=== PATIENT | female | born 1945 | race Caucasian/White ===

== ENCOUNTER → 2017-12-16 | Outpatient (CLI) | payer OTHER ==
[~2017-12-16] MED LIST: ACAI; ACET325 PO; ACET500 PO; ALBU.083IS IH; ALBU2.5V5 INH; ALBU3IS INH; ALBU4 INH; ALBU90OI INH; ALBUIS INH; ALUMAG30SU PO; ASPI325 PO; ASPI81CH; ASPI81CH PO; ASPI81EC; ASPI81EC PO; ATECHL; ATOR10 PO; ATOR20 PO; Accuneb0.63 MG/3 IH; BAYER CHEWABLE81 MG PO; BENEFIBER1 EAC1 PO; BENZ100A PO; Bactrim Ds Tab1 EACH PO; Benefiber98 GM PO; Bumetanide0.5 MG PO; CEPH500 PO; CHLORHEXIDINE FL1 ML PO; CILO50 PO; CIME400; CLON.1 PO; CLON.5 PO; CLON1; CLONAZEPAM; CODGUAEL PO; CVS DISPOSABLE399 ML PR; CYCL10 PO; DIAZ10; DIAZEPAM; DILT120 PO; DILT120ERA PO; DIPATR; DIPATR PO; DIVA125 PO; DIVA125EC PO; DIVA500EC; DIVA500EC PO; DIVA500ER PO; DOCU100 PO; DULO30; DULO30 PO; DULO60; DULO60 PO; ENDOCET PO; ERGCAF PO; ESTR1; ESTR1 PO; ESTR2 PO; FENT25TP TOP; FIBE4P PO; FISH1000 PO; FLUV80CR; FLUV80CR PO; FURO20 PO; FURO40; FURO40 PO; FURO80 PO; GABA300 PO; GEMF600 PO; GLIP2.5ER PO; GLIP5 PO; GLIP5ER PO; GLYCAS PR; GUAI600T33 PO; HYDACE10B; HYDACE10B PO; HYDACE5; HYDACE5 PO; HYDACE7.5; HYDR1TAB94 PO; Hair, Skin & N1 EACH PO; Hydrocodone-Ap1 EA23 PO; IBUP400 PO; IBUP600 PO; INS70/30PN SC; INSUASPI SC; INSULANPEN; INSULANPEN SC; IPRAIS NEB; ISOMON30 PO; ISOMON60ER; Ipratr-Albuterol3 ML INH; Isosorbide Dini30 MG PO; LASIX; LAVAP17G PO; LESCOL; LEVEMIR FL100 UNIT/1 SC; LEVFLO500 PO; LEVO750 PO; LISI10; LORA1 PO; LOSA25 PO; METF500 PO; METF500C PO; METO100 PO; METO100ER PO; METO2.5 PO; METO50 PO; MIRALAX119 GM PO; MULVITA PO; MULVITMIND PO; MULVITMINE PO; Macrobid 100 M100 MG PO; Milk Of Ma400 MG/5 M PO; Multivitamin1 EAC1 PO; NAPR220 PO; NAPR550 PO; NICO2 PO; NITR2TO30; Nicotine Gum2 MG BC; Novolog Fl100 UNIT/1 SC; Novolog100 UNIT/2; Novolog100 UNIT/2 SC; OLME20 PO; OLME5TAB; OLME5TAB PO; OMEP20ER; OMEP20ER PO; OMEPRAZOLE MAGN20 MG PO; OXYACE5T PO; OXYACE7.5T PO; Omeprazole20 M1 PO; PHENA100; PHENY100ER; POTASSIUM CHLORIDE; POTASSIUM CHLORIDE PO; POTCHL10ER PO; POTCHL20ER PO; PRAV20 PO; PRIM50 PO; PROM25 PO; QUET100 PO; QUET25 PO; RABE20; RANI150; RANI150 PO; ROBITUSSIN COU118 ML PO; ROBITUSSIN100 MG/5 M PO; RXCYCL10 PO; RXDIPATR PO; RXHYDACE PO; RXOXYACE PO; SULTRIDS PO; Senna8.6 M1 PO; Senna8.6 MG PO; Seroquel100 MG PO; Seroquel50 MG PO; TEMA15 PO; THIA100 PO; TIOT18 IH; TRAM50; TRAM50 PO; TRAMADOL; TRAZ100; TRAZ100 PO; TRAZ150; TRAZ150T57 PO; TRAZ50; TRAZ50 PO; TRAZODONE; VERA180ERA PO; VERA180ERB; VERA180ERB PO; VERA240ERB PO; Ventolin5 MG/1 ML INH; Vitamin D400 UNI1 PO; [UNRECOGNIZED DRUG - OTHER]; [UNRECOGNIZED DRUG - OTHER]; [UNRECOGNIZED DRUG - OTHER]
== END ==
LOC: LAB SHORT 16:03
DX: L08.9 Local infection of the skin and subcutaneous tissue, unspecified (principal); L02.223 Furuncle of chest wall; L02.02 Furuncle of face; L21.8 Other seborrheic dermatitis
CPT/HCPCS: 87070; 87077; 87186; 87205

== ENCOUNTER 2018-01-08 14:55 | Inpatient (IN) | payer OTHER ==
[~2018-01-08] VITALS: Ht 170.2 cm; Wt 102.0 kg
[~2018-01-08 14:55] MED LIST changes: -ALBU2.5V5 INH; -Bumetanide0.5 MG PO; -FURO80 PO; -INSULANPEN; -LEVEMIR FL100 UNIT/1 SC; -METO2.5 PO; -Macrobid 100 M100 MG PO; -Novolog Fl100 UNIT/1 SC; -Novolog100 UNIT/2; -POTASSIUM CHLORIDE PO; -TRAM50 PO; -Vitamin D400 UNI1 PO
[2018-01-08 15:16] LABS: PCO2 Arterial 55.4 mmHg (35-45); PO2 Arterial 68.9 mmHg (80-100); pH Blood Arterial 7.56 (7.35-7.45)
[2018-01-08 15:28] LABS: BASOPHILS ABSOLUTE AUTO 0.08 K/mm3 (0.00-0.23); BASOPHILS PERCENT AUTO 1 % (0-2); EOSINOPHILS ABSOLUTE AUTO 0.07 K/mm3 (0.00-0.68); EOSINOPHILS PERCENT AUTO 0 % (0-6); Hematocrit 54.4 % (33.0-51.0); Hemoglobin 17.6 g/dL (11.5-16.0); IMMATURE GRAN ABSOLUTE AUTO 0.12 K/mm3 (0.00-0.10); IMMATURE GRAN PERCENT AUTO 1 % (0-1); LYMPHOCYTES ABSOLUTE AUTO 4.03 K/mm3 (0.84-5.20); LYMPHOCYTES PERCENT AUTO 23 % (21-46); MONOCYTES ABSOLUTE AUTO 2.64 K/mm3 (0.16-1.47); MONOCYTES PERCENT AUTO 15 % (4-13); Mean Corpuscular HGB 30.6 pg (26.0-34.0); Mean Corpuscular HGB Conc 32.4 g/dL (31.5-36.5); Mean Corpuscular Volume 94 fL (80-100); Mean Platelet Volume 10.1 fL (9.1-12.4); NEUTROPHILS ABSOLUTE AUTO 10.46 K/mm3 (1.96-9.15); NEUTROPHILS PERCENT AUTO 60 % (41-73); NRBC ABSOLUTE 0.02 K/mm3 (0.00-0.02); NRBC Auto 0.1 /100 WBC (0.0-0.2); Platelet Count 268 K/mm3 (150-400); RDW Coefficient Variation 15.2 % (11.7-14.2); RDW Standard Deviation 51.9 fL (35.1-46.3); Red Blood Cell Count 5.76 M/mm3 (3.80-5.20)
[2018-01-08 15:41] LABS: Alanine Aminotransfer (ALT/SGP 20 U/L (12-78); Albumin, Blood 3.4 g/dL (3.4-5.0); Albumin/Globulin Ratio 0.7 (0.8-1.8); Alk Phos 63 U/L (50-136); Aspartate Aminotrans (AST/SGOT 31 U/L (12-37); Bilirubin, Total 0.4 mg/dL (0.1-1.0); Blood Urea Nitrogen 48 mg/dL (8-24); Bun/Creatinine Ratio 52.4 (12.0-20.0); Calcium, Blood 10.1 mg/dL (8.5-10.1); Chloride, Blood 85 mmol/L (98-108); Creatinine, Blood 0.92 mg/dL (0.40-1.00); Globulin, Blood 5.1 g/dL (2.2-4.0); Glomerular Filtration Rate >60 (60-); Glucose, Blood 218 mg/dL (70-99); Magnesium, Blood 2.7 mg/dL (1.6-2.4); Potassium, Blood 3.3 mmol/L (3.5-5.5); Sodium, Blood 140 mmol/L (136-145); Total Protein, Blood 8.5 g/dL (6.4-8.2)
[2018-01-08 16:00] LABS: Anion Gap 10 mmol/L (6-16); CO2, Blood 45 mmol/L (21-32)
[2018-01-08 16:15] LABS: Source, Urine Catheter
[2018-01-08 16:25] LABS: Appearance, Urine Clear (Clear); Bilirubin, Urine Neg (Neg); Blood, Urine 1+ (Neg); Color, Urine Yellow (P-Yellow); Glucose Qualitative, Urine Neg (Neg); Ketones, Urine Neg (Neg); Leukocyte Esterase, Urine 2+ (Neg); Nitrite, Urine Neg (Neg); Protein, Urine 1+ (Neg); Specific Gravity, Urine 1.015 (1.003-1.022); Urobilinogen, Urine 1+ (Normal)
[2018-01-08] MEDS ORDERED: INSULANPEN (16:25)
[2018-01-08] MEDS ORDERED: Novolog100 UNIT/2 (16:27)
[2018-01-08] MEDS ORDERED: METO2.5 PO (16:31)
[2018-01-08] MEDS ORDERED: Vitamin D400 UNI1 PO (16:32)
[2018-01-08 16:33] LABS: Red Blood Cells, Urine 0-2 /hpf (0-2); Squamous Epithelial Cells Rare /hpf (Few); White Blood Cells, Urine 25-50 /hpf (0-5); Yeast/Fungi Urine Few /hpf
[2018-01-08 16:34] LABS: Bacteria Few /hpf
[2018-01-08] MEDS ORDERED: TRAM50 PO (16:36)
[2018-01-08 17:04] LABS: Influenza A Negative (NEGATIVE); Influenza B Negative (NEGATIVE)
[2018-01-09 05:59] LABS: BASOPHILS ABSOLUTE AUTO 0.05 K/mm3 (0.00-0.23); BASOPHILS PERCENT AUTO 0 % (0-2); EOSINOPHILS ABSOLUTE AUTO 0.01 K/mm3 (0.00-0.68); EOSINOPHILS PERCENT AUTO 0 % (0-6); Hematocrit 42.4 % (33.0-51.0); Hemoglobin 13.5 g/dL (11.5-16.0); IMMATURE GRAN ABSOLUTE AUTO 0.08 K/mm3 (0.00-0.10); IMMATURE GRAN PERCENT AUTO 1 % (0-1); LYMPHOCYTES ABSOLUTE AUTO 1.84 K/mm3 (0.84-5.20); LYMPHOCYTES PERCENT AUTO 12 % (21-46); MONOCYTES ABSOLUTE AUTO 2.43 K/mm3 (0.16-1.47); MONOCYTES PERCENT AUTO 16 % (4-13); Mean Corpuscular HGB 30.8 pg (26.0-34.0); Mean Corpuscular HGB Conc 31.8 g/dL (31.5-36.5); Mean Platelet Volume 10.1 fL (9.1-12.4); NEUTROPHILS ABSOLUTE AUTO 10.49 K/mm3 (1.96-9.15); NEUTROPHILS PERCENT AUTO 71 % (41-73); NRBC ABSOLUTE 0.02 K/mm3 (0.00-0.02); NRBC Auto 0.1 /100 WBC (0.0-0.2); Platelet Count 185 K/mm3 (150-400); RDW Coefficient Variation 15.1 % (11.7-14.2); RDW Standard Deviation 53.2 fL (35.1-46.3); Red Blood Cell Count 4.38 M/mm3 (3.80-5.20)
[2018-01-09 06:11] LABS: Mean Corpuscular Volume 97 fL (80-100)
[2018-01-09 06:22] LABS: Anion Gap 8 mmol/L (6-16); Blood Urea Nitrogen 44 mg/dL (8-24); Bun/Creatinine Ratio 61.7 (12.0-20.0); CO2, Blood 41 mmol/L (21-32); Chloride, Blood 91 mmol/L (98-108); Creatinine, Blood 0.71 mg/dL (0.40-1.00); Glomerular Filtration Rate >60 (60-); Glucose, Blood 321 mg/dL (70-99); Potassium, Blood 2.5 mmol/L (3.5-5.5); Sodium, Blood 140 mmol/L (136-145)
[2018-01-10 06:22] LABS: BASOPHILS ABSOLUTE AUTO 0.05 K/mm3 (0.00-0.23); BASOPHILS PERCENT AUTO 0 % (0-2); EOSINOPHILS ABSOLUTE AUTO 0.02 K/mm3 (0.00-0.68); EOSINOPHILS PERCENT AUTO 0 % (0-6); Hematocrit 38.3 % (33.0-51.0); Hemoglobin 12.1 g/dL (11.5-16.0); IMMATURE GRAN ABSOLUTE AUTO 0.16 K/mm3 (0.00-0.10); IMMATURE GRAN PERCENT AUTO 1 % (0-1); LYMPHOCYTES ABSOLUTE AUTO 1.53 K/mm3 (0.84-5.20); LYMPHOCYTES PERCENT AUTO 12 % (21-46); MONOCYTES ABSOLUTE AUTO 1.35 K/mm3 (0.16-1.47); MONOCYTES PERCENT AUTO 10 % (4-13); Mean Corpuscular HGB 30.3 pg (26.0-34.0); Mean Corpuscular HGB Conc 31.6 g/dL (31.5-36.5); Mean Corpuscular Volume 96 fL (80-100); Mean Platelet Volume 10.5 fL (9.1-12.4); NEUTROPHILS ABSOLUTE AUTO 10.09 K/mm3 (1.96-9.15); NEUTROPHILS PERCENT AUTO 76 % (41-73); NRBC ABSOLUTE 0.02 K/mm3 (0.00-0.02); NRBC Auto 0.2 /100 WBC (0.0-0.2); Platelet Count 174 K/mm3 (150-400); RDW Coefficient Variation 15.3 % (11.7-14.2); RDW Standard Deviation 54.2 fL (35.1-46.3); Red Blood Cell Count 3.99 M/mm3 (3.80-5.20)
[2018-01-10 06:29] LABS: Anion Gap 6 mmol/L (6-16); Blood Urea Nitrogen 33 mg/dL (8-24); Bun/Creatinine Ratio 48.2 (12.0-20.0); CO2, Blood 36 mmol/L (21-32); Calcium, Blood 9.4 mg/dL (8.5-10.1); Chloride, Blood 102 mmol/L (98-108); Creatinine, Blood 0.69 mg/dL (0.40-1.00); Glomerular Filtration Rate >60 (60-); Glucose, Blood 286 mg/dL (70-99); Magnesium, Blood 2.4 mg/dL (1.6-2.4); Sodium, Blood 144 mmol/L (136-145)
[2018-01-10 12:11] LABS: Valproic Acid 15.1 ug/mL (50.0-100.0)
[2018-01-11 05:04] LABS: BASOPHILS ABSOLUTE AUTO 0.08 K/mm3 (0.00-0.23); BASOPHILS PERCENT AUTO 1 % (0-2); EOSINOPHILS ABSOLUTE AUTO 0.06 K/mm3 (0.00-0.68); EOSINOPHILS PERCENT AUTO 1 % (0-6); Hematocrit 38.3 % (33.0-51.0); Hemoglobin 11.7 g/dL (11.5-16.0); IMMATURE GRAN PERCENT AUTO 4 % (0-1); LYMPHOCYTES PERCENT AUTO 17 % (21-46); MONOCYTES ABSOLUTE AUTO 0.97 K/mm3 (0.16-1.47); MONOCYTES PERCENT AUTO 9 % (4-13); Mean Corpuscular HGB Conc 30.5 g/dL (31.5-36.5); Mean Corpuscular Volume 98 fL (80-100); Mean Platelet Volume 10.6 fL (9.1-12.4); NEUTROPHILS ABSOLUTE AUTO 7.49 K/mm3 (1.96-9.15); NEUTROPHILS PERCENT AUTO 69 % (41-73); NRBC ABSOLUTE 0.04 K/mm3 (0.00-0.02); NRBC Auto 0.4 /100 WBC (0.0-0.2); Platelet Count 181 K/mm3 (150-400); RDW Coefficient Variation 15.6 % (11.7-14.2); RDW Standard Deviation 55.4 fL (35.1-46.3)
[2018-01-11 05:27] LABS: Anion Gap 5 mmol/L (6-16); Blood Urea Nitrogen 27 mg/dL (8-24); CO2, Blood 34 mmol/L (21-32); Calcium, Blood 9.6 mg/dL (8.5-10.1); Chloride, Blood 108 mmol/L (98-108); Creatinine, Blood 0.63 mg/dL (0.40-1.00); Glomerular Filtration Rate >60 (60-); Glucose, Blood 253 mg/dL (70-99); Potassium, Blood 3.6 mmol/L (3.5-5.5); Sodium, Blood 147 mmol/L (136-145)
[2018-01-12 06:46] LABS: Anion Gap 9 mmol/L (6-16); Blood Urea Nitrogen 23 mg/dL (8-24); Bun/Creatinine Ratio 44.7 (12.0-20.0); CO2, Blood 28 mmol/L (21-32); Calcium, Blood 9.5 mg/dL (8.5-10.1); Chloride, Blood 105 mmol/L (98-108); Creatinine, Blood 0.51 mg/dL (0.40-1.00); Glomerular Filtration Rate >60 (60-); Glucose, Blood 262 mg/dL (70-99); Potassium, Blood 3.6 mmol/L (3.5-5.5); Sodium, Blood 142 mmol/L (136-145)
[2018-01-13 05:00] LABS: Hematocrit 37.5 % (33.0-51.0); Hemoglobin 12.1 g/dL (11.5-16.0); Mean Corpuscular HGB Conc 32.3 g/dL (31.5-36.5); Mean Platelet Volume 9.5 fL (9.1-12.4); NRBC ABSOLUTE 0.03 K/mm3 (0.00-0.02); NRBC Auto 0.4 /100 WBC (0.0-0.2); Platelet Count 172 K/mm3 (150-400); RDW Standard Deviation 50.2 fL (35.1-46.3); Red Blood Cell Count 4.04 M/mm3 (3.80-5.20); White Blood Cell Count 7.97 K/mm3 (4.00-11.30)
[2018-01-13 05:02] LABS: Mean Corpuscular Volume 93 fL (80-100)
[2018-01-13 05:18] LABS: Anion Gap 7 mmol/L (6-16); Blood Urea Nitrogen 23 mg/dL (8-24); Bun/Creatinine Ratio 39.7 (12.0-20.0); CO2, Blood 33 mmol/L (21-32); Calcium, Blood 8.9 mg/dL (8.5-10.1); Chloride, Blood 98 mmol/L (98-108); Creatinine, Blood 0.58 mg/dL (0.40-1.00); Glomerular Filtration Rate >60 (60-); Glucose, Blood 197 mg/dL (70-99); Potassium, Blood 3.6 mmol/L (3.5-5.5); Sodium, Blood 138 mmol/L (136-145)
[2018-01-13] MEDS ORDERED: LEVEMIR FL100 UNIT/1 SC (15:08)
[2018-01-13] MEDS ORDERED: Novolog Fl100 UNIT/1 SC (15:10)
[2018-01-13] MEDS ORDERED: ALBU2.5V5 INH (15:12)
[2018-01-13] MEDS ORDERED: LEVFLO500 PO (15:12)
== END 2018-01-13 15:05 | DRG 871 ==
LOC: ER 14:55 → PCU 17:12 → MEDS 01-12 14:20 → ENPENDDIS 01-13 10:33 → MEDS 01-13 15:05
PROVIDERS: Hospitalist; Internal Medicine
PROC: 3E0234Z Introduction of Serum, Toxoid and Vaccine into Muscle, Percutaneous Approach (ICD-10-PCS; principal; 2018-01-08)
DX: A41.9 Sepsis, unspecified organism (principal); J18.9 Pneumonia, unspecified organism; J96.21 Acute and chronic respiratory failure with hypoxia; G93.41 Metabolic encephalopathy; E11.65 Type 2 diabetes mellitus with hyperglycemia; I50.32 Chronic diastolic (congestive) heart failure; E11.40 Type 2 diabetes mellitus with diabetic neuropathy, unspecified; I48.2 Chronic atrial fibrillation; E87.1 Hypo-osmolality and hyponatremia; J44.0 Chronic obstructive pulmonary disease with (acute) lower respiratory infection; G40.909 Epilepsy, unspecified, not intractable, without status epilepticus; R65.20 Severe sepsis without septic shock; I25.10 Atherosclerotic heart disease of native coronary artery without angina pectoris; Z87.820 Personal history of traumatic brain injury; E66.9 Obesity, unspecified; Z68.35 Body mass index [BMI] 35.0-35.9, adult; Z66 Do not resuscitate; Z23 Encounter for immunization
CPT/HCPCS: 36415; 36600; 71045; 71046; 80048; 80053; 80164; 81001; 82803; 82947; 83036; 83605; 83735; 83880; 85025; 85027; 87040; 87086; 87804; 92526; 92610; 93005; 93010; 94640; 94667; 94668; 94760; 96361; 96365; 96367; 96375; 99285; C9113; G8996; G8997; G8998; J0696; J1120; J1650; J1815; J1956; J3480; J7030; J7070

== ENCOUNTER 2018-02-12 11:17 | Emergency (ER) | payer OTHER ==
[~2018-02-12] VITALS: Ht 170.2 cm; Wt 108.9 kg
[~2018-02-12 11:17] MED LIST changes: +ALBU2.5V5 INH; +INSULANPEN; +LEVEMIR FL100 UNIT/1 SC; +METO2.5 PO; +Novolog Fl100 UNIT/1 SC; +Novolog100 UNIT/2; +TRAM50 PO; +Vitamin D400 UNI1 PO
[2018-02-12 12:54] LABS: Source, Urine Catheter
[2018-02-12] MEDS ORDERED: FURO80 PO (12:54)
[2018-02-12 12:58] LABS: Appearance, Urine Cloudy (Clear); Bilirubin, Urine Neg (Neg); Blood, Urine 2+ (Neg); Color, Urine Yellow (P-Yellow); Glucose Qualitative, Urine Neg (Neg); Ketones, Urine Neg (Neg); Leukocyte Esterase, Urine 3+ (Neg); Nitrite, Urine Pos (Neg); Protein, Urine 1+ (Neg); Specific Gravity, Urine 1.015 (1.003-1.022); Urobilinogen, Urine 1+ (Normal)
[2018-02-12 13:05] LABS: White Blood Cells, Urine 25-50 /hpf (0-5)
[2018-02-12 13:06] LABS: Bacteria Many /hpf; Squamous Epithelial Cells Many /hpf (Few)
[2018-02-12] MEDS ORDERED: Macrobid 100 M100 MG PO (13:33)
== END 2018-02-12 14:30 | disposition home or self-care (01) ==
LOC: ER 11:17
PROVIDERS: Nurse Practitioner Family
DX: N39.0 Urinary tract infection, site not specified (principal); Z88.8 Allergy status to other drugs, medicaments and biological substances; Z88.0 Allergy status to penicillin; Z79.899 Other long term (current) drug therapy; Z79.82 Long term (current) use of aspirin; Z79.4 Long term (current) use of insulin; E11.9 Type 2 diabetes mellitus without complications; I10 Essential (primary) hypertension; F32.9 Major depressive disorder, single episode, unspecified
CPT/HCPCS: 81001; 82947; 87077; 87086; 87186; 93005; 93010; 99283

== ENCOUNTER 2018-03-02 10:32 | Emergency (ER) | payer OTHER ==
[~2018-03-02] VITALS: Ht 177.8 cm; Wt 108.9 kg
[~2018-03-02 10:32] MED LIST changes: +FURO80 PO; +Macrobid 100 M100 MG PO
[2018-03-02 11:35] LABS: Calcium, Ionized (POC) 1.11 mmol/L (1.10-1.46); Chloride (POC) 89 mmol/L (98-108); Creatinine (POC) 1.1 mg/dL (0.6-1.0); Glucose (ISTAT POC) 327 mg/dL (70-99); Hemoglobin (POC) 11.9 g/dL (12.0-16.0); Potassium (POC) 3.3 mmol/L (3.5-5.5); Sodium (POC) 138 mmol/L (135-148); Total CO2 (POC) 38 mmol/L (21-32)
[2018-03-02] MEDS ORDERED: INSULANPEN SC (11:40)
[2018-03-02] MEDS ORDERED: Bumetanide0.5 MG PO (11:46)
[2018-03-02] MEDS ORDERED: POTASSIUM CHLORIDE PO (11:48)
[2018-03-02] MEDS ORDERED: QUET25 PO (11:50)
== END 2018-03-02 12:28 | disposition home or self-care (01) ==
LOC: ER 10:32
PROVIDERS: Emergency Medicine
DX: E11.65 Type 2 diabetes mellitus with hyperglycemia (principal); Z88.8 Allergy status to other drugs, medicaments and biological substances; Z88.0 Allergy status to penicillin; Z88.5 Allergy status to narcotic agent; Z79.899 Other long term (current) drug therapy; Z79.82 Long term (current) use of aspirin; Z79.4 Long term (current) use of insulin; I11.0 Hypertensive heart disease with heart failure; I50.9 Heart failure, unspecified; F32.9 Major depressive disorder, single episode, unspecified; F41.9 Anxiety disorder, unspecified
CPT/HCPCS: 80047; 82947; 85014; 93005; 93010; 99283; J1815